=== PATIENT | male | born 1965 | race Caucasian/White ===

== ENCOUNTER → 2017-11-14 09:10 | Outpatient (CLI) | payer OTHER, SELFPAY ==
--- NOTE | 2017-11-14 | ASPOS_PTH ---
PATIENT: KELSEY RAMIRES LOC: [facility] U#:[id number] AGE/SX: 59/M ROOM: RE11/14/[address]: Dr. Nayan Andrews MD : 1965 BED: DIS: SPEC #: [id number] RECD: 11/14/17 13:16 STATUS: DANIEL RICHARD #: [id number] YVONNE: 11/14/17 00:[address]: Nayan Andrews DEPT: CYTOLOGY RECD BY: Juan M Bunn ENTERED: 11/14/17 13:17 SP TYPE: ASP HERE OTHR DR: No Primary Care Phys Tissues: Face, NOS Parotid gland, NOS Procedures: Pap Stain (control) Special Stain Group II Surgery Specimen Level IV Diff Quik Stain (control) Cell Block Cytology Other Fine Needle Asp on Site HEADER OPERATION: FNA right parotid mass PRE-OP DIAGNOSIS: Right parotid mass TISSUE SUBMITTED: Right parotid mass DIAGNOSIS CYTOLOGY Right carotid mass, FNA (smears and cell block): Consistent with pleomorphic adenoma. :rg 11/15/17 COMMENT The specimen is evaluated at the time of FNA by Dr. James. Immediate Evaluation = Pleomorphic adenoma. CYTOLOGY STUDY Slides are reviewed. CYTOLOGY GROSS Received is 0.2 ml of reddish-lee fluid labeled with the patient's name, and designated right parotid mass. Three imprints and two paps are made from the submitted fluid and the rest is added to CytoLyt for cell block preparation. Submitted for cytology study. / AM:anna 11/14/17 TC:1 CPT: 34278, 93383, 53433, 66663
== END ==
PROVIDERS: Visit Provider Otolaryngology
DX: R22.0 Localized swelling, mass and lump, head (principal)
CPT/HCPCS: 10021; 88161; 88305; 88313

== ENCOUNTER 2018-01-03 06:15 | Day surgery (SDC) | payer SELFPAY ==
--- NOTE | 2017-12-28 15:59 | EKG12_ITS ---
Test Reason : PREOP Blood Pressure : / mmHG Vent. Rate : 038 BPM Atrial Rate : 038 BPM P-R Int : 190 ms QRS Dur : 092 ms QT Int : 442 ms P-R-T Axes : 019 009 035 degrees QTc Int : 351 ms Marked sinus bradycardia Abnormal ECG Confirmed by ZEESHAN MERIDA, JONES ([id number]), editor index SCHUYLER GERARDO ([id number]) on 12/31/2017 2:04:50 PM Referred By: Kulwant Andrews Confirmed By:JONES BYERS MD
[2017-12-28 16:13] LABS: Hematocrit 43.2 % (40-54); Hemoglobin 15.3 g/dl (13.0-16.5); Mean Corp Hgb Conc 35.4 g/gl (32-36); Mean Corpuscular Hgb 32.1 pg (27.0-32.0); Mean Corpuscular Volume 90.6 fL (80-94); Mean Platelet Vol. 10.3 fl (6.2-12.0); Platelet Count 179 K/mm3 (150-450); RBC Distribution Width CV 12.2 % (11.6-14.6); Red Blood Count 4.77 M/mm3 (4.6-6.2); White Blood Count 4.6 K/mm3 (4.4-11.0)
[2017-12-28 16:25] LABS: Scan Indicated on CBC? Y/N NO
[2017-12-28 17:10] LABS: Anion Gap 6 (5-15); BUN 14 mg/dL (7-18); BUN/Creat Ratio 12.7 RATIO (10-20); Calcium,Total 8.8 mg/dL (8.5-10.1); Chloride 105 mmol/L (98-107); EST Glomerular Filtration Rate 74 mL/min (>60); Est Glom Filt Rate - Afr Amer 90 mL/min (>60); Glucose 91 mg/dL (74-106); Potassium 4.3 mmol/L (3.5-5.1); Sodium Level 140 mmol/L (136-145)
[2018-01-03] VITALS (9 sets, daily range): BP systolic 107–143; BP diastolic 69–88; PULSE 51–86; RESP 16–18; TEMP 36.3–36.5; O2SAT 96–100; BMI 32.1
--- NOTE | 2018-01-03 | PAR_PTH ---
PATIENT: KELSEY RAMIRES [place] [facility] [place][id number] AGE/SX: 52/M ROOM: RE01/03/[address]: Dr. Nayan Andrews MD : 1965 BED: DIS: 01/03/2018 SPEC #: [id number] RECD: 01/04/18 14:28 STATUS: DUTCHWisam RAMOS #: [id number] YVONNE: 01/03/18 00:[address]: Nayan Andrews DEPT: SURGICAL PATHOLOGY RECD BY: Angelito Ortega ENTERED: 01/04/18 14:29 SP TYPE: PAROTID OTHR DR: No Primary Care Phys Tissues: Parotid gland, NOS Procedures: Surgery Specimen Level V HEADER OPERATION: Right parotidectomy with preservation of facial nerve PRE-OP DIAGNOSIS: Benign neoplasm of parotid mass TISSUE SUBMITTED: Right parotid mass MICROSCOPIC DIAGNOSIS Right parotid mass, parotidectomy: Pleomorphic adenoma (5.5 cm in greatest dimension). A periparotid lymph node with reactive changes. See comment. TORO:anna 01/07/18 COMMENT Salivary gland tissue adjacent to the tumor is unremarkable. Please make reference to previous specimen ([id number]) right parotid mass, FNA with diagnosis of consistent with pleomorphic adenoma. MICROSCOPIC DESCRIPTION Slides are reviewed. GROSS DESCRIPTION Received in fixative is one container labeled with the patient's name and designated right parotid mass. The specimen consists of an irregular piece of glandular tissue weighing 28 gm and measuring 6 x 4 x 2.5 cm. The external surface is inked. Serial sections reveal a lee-white, solid mass measuring 5.5 x 3.5 x 2.5 cm. The mass occupies about 90% of the submitted specimen. The mass appears to be close to the resection margin of the specimen. Visitor Services Representative sections are submitted in ten cassettes from one end to another end. / TORO:anna 01/04/18 TC:1 CPT: 18530
--- NOTE | 2018-01-03 07:43 | PCM.DC ---
You will use the following diet at home:: No restrictions Discharge Activity: Return to Normal Activity Call your doctor if your incision/area has: Increased Pain/ Swelling Additional Dressing/Incision Instructions:: you may shower and wash incisions with soap/water beginning sunday morning. place ointment on incisions twice daily. keep abdominal binder on at all times. record NITIN output. Allergies/Adverse Reactions: Allergies No Known Allergies Allergy (Verified 12/27/17 14:49) Medications to take at Discharge Multivitamins,Therapeutic [Multivitamin] 1 tablet PO DAILY 12/27/17 Amoxicillin/Potassium Clav [Augmentin 875-125 Tablet] 1 ea PO BID #14 tab 01/03/18 Hydrocodone/Acetaminophen [[place]orest 5-325 Tablet] 1 ea PO Q6H 5 Days #15 tab 01/03/18 The following prescriptions were given: Amoxicillin/Potassium Clav [Augmentin 875-125 Tablet] 1 ea PO BID #14 tab Hydrocodone/Acetaminophen [Demorest 5-325 Tablet] 1 ea PO Q6H 5 Days #15 tab Primary Care Physician: Care Physician,No Primary [Primary Care Provider] - Test Results: Test results from this visit will be discussed in further detail at your follow-up appointment, if applicable. Please Follow Up With: Jordan Andrews MD When: tomorrow
--- NOTE | 2018-01-03 07:47 | DCINST_ITS ---
You will use the following diet at home:: No restrictions Discharge Activity: Return to Normal Activity Call your doctor if your incision/area has: Increased Pain/ Swelling Additional Dressing/Incision Instructions:: you may shower and wash incisions with soap/water beginning sunday morning. place ointment on incisions twice daily. keep abdominal binder on at all times. record NITIN output. Allergies/Adverse Reactions: Allergies No Known Allergies Allergy (Verified 12/27/17 14:49) Medications to take at Discharge Multivitamins,Therapeutic [Multivitamin] 1 tablet PO DAILY 12/27/17 Amoxicillin/Potassium Clav [Augmentin 875-125 Tablet] 1 ea PO BID #14 tab Hydrocodone/Acetaminophen [[place] 5-325 Tablet] 1 ea PO Q6H 5 Days #15 tab The following prescriptions were given: Amoxicillin/Potassium Clav [Augmentin 875-125 Tablet] 1 ea PO BID #14 tab Hydrocodone/Acetaminophen [[place] 5-325 Tablet] 1 ea PO Q6H 5 Days #15 tab Primary Care Physician: Care Physician,No Primary [Primary Care Provider] - Test Results: Test results from this visit will be discussed in further detail at your follow- up appointment, if applicable. Please Follow Up With: Jordan Andrews MD When: tomorrow
--- NOTE | 2018-01-03 07:47 | PCM.OPRPT ---
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 right superficial parotidectomy. 2. superficial musculoaponeurotic system flap. 3. abdominal fat graft Type of Anesthesia:: General Specimen's removed: right parotid gland Drains: right facial NITIN Estimated Blood Loss (mL): 5cc Description of Procedure: on the day of the procedure, after appropriate informed consent was obtained, the patient was brought to the operating room and placed in supine position on the operating table. he was placed under general endotracheal anesthesia by the anesthesiologist. the endotracheal tube was secured, the eyes were taped. right facial nerve monitoring electrodes were placed. the table was rotated 90 degrees toward the surgeon. the face and abdomen were prepped and draped in sterile fashion. the right preauricular area was injected with lidocaine/epinephrine. a modified irene incision was made with a #15 blade. the temporal-parietal fascia was located in the preauricular area. the superficial musculoaponeurotic system was isolated with metzenbaum scissors, traversing into the platysma. the tragal pointer was dissected in the supraperichondrial plane. the parotid tail was dissected off of the sternocleidomastoid fascia. 1cm inferior and deep to the tragal pointer, the main trunk of the facial nerve was exposed. this was stimulated for confirmation. beginning inferiorly, the branches of the facial nerve were individually dissected and the superficial lobe of the parotid was removed. the area was irrigated with saline. the lower left quadrant was injected with lidocaine/epinephrine. a 4cm incision was made with a #15 blade and the abdominal fat was revealed. a 4x4 cm fat graft was harvested with metzenbaum scissors. this was brought to the superior table and rinsed in saline. a melvi was placed in the abdominal defect after hemostasis was achieved. this was closed with 3-0 vicryl and 4-0 monocryl. the facial nerve main trunk was stimulated again and the superior and inferior divisions were intact. the fat graft was placed appropriately into the facial defect. this was sutured into place and the SMAS flap was closed with 4-0 vicryl. a 15 danish NITIN drain was placed and sutured into place. the irene incision was closed with 4-0 vicryl and 5-0 nylon. the patient was awoken from anesthesia and transferred to the PACU in stable condition. Grafts/Implants Used: abdominal fat graft
--- NOTE | 2018-01-03 08:13 | OP.PCM_ITS ---
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 right superficial parotidectomy. 2. superficial musculoaponeurotic system flap. 3. abdominal fat graft Type of Anesthesia:: General Specimen's removed: right parotid gland Drains: right facial NITIN Estimated Blood Loss (mL): 5cc Description of Procedure: on the day of the procedure, after appropriate informed consent was obtained, the patient was brought to the operating room and placed in supine position on the operating table. he was placed under general endotracheal anesthesia by the anesthesiologist. the endotracheal tube was secured, the eyes were taped. right facial nerve monitoring electrodes were placed. the table was rotated 90 degrees toward the surgeon. the face and abdomen were prepped and draped in sterile fashion. the right preauricular area was injected with lidocaine/ epinephrine. a modified irene incision was made with a #15 blade. the temporal- parietal fascia was located in the preauricular area. the superficial musculoaponeurotic system was isolated with metzenbaum scissors, traversing into the platysma. the tragal pointer was dissected in the supraperichondrial plane. the parotid tail was dissected off of the sternocleidomastoid fascia. 1cm inferior and deep to the tragal pointer, the main trunk of the facial nerve was exposed. this was stimulated for confirmation. beginning inferiorly, the branches of the facial nerve were individually dissected and the superficial lobe of the parotid was removed. the area was irrigated with saline. the lower left quadrant was injected with lidocaine/epinephrine. a 4cm incision was made with a #15 blade and the abdominal fat was revealed. a 4x4 cm fat graft was harvested with metzenbaum scissors. this was brought to the superior table and rinsed in saline. a melvi was placed in the abdominal defect after hemostasis was achieved. this was closed with 3-0 vicryl and 4-0 monocryl. the facial nerve main trunk was stimulated again and the superior and inferior divisions were intact. the fat graft was placed appropriately into the facial defect. this was sutured into place and the SMAS flap was closed with 4-0 vicryl. a 15 thai NITIN drain was placed and sutured into place. the irene incision was closed with 4-0 vicryl and 5-0 nylon. the patient was awoken from anesthesia and transferred to the PACU in stable condition. Grafts/Implants Used: abdominal fat graft
[2018-01-03] MEDS: Mupirocin Ointment 22gm Tube 1 APPLIC (13:46)
[2018-01-03] MEDS: HYDROcodone Bitartrate/Apap 5/325 Tablet PO (15:53)
== END 2018-01-03 18:19 | disposition home or self-care (01) ==
LOC: SDC 06:18 → AC 06:19
PROVIDERS: Visit Provider Otolaryngology
PROC: (CPT 15730; principal; 2018-01-03 07:35)
DX: D11.0 Benign neoplasm of parotid gland (principal)
CPT/HCPCS: 00100; 15730; 20920; 42415; 36415; 80048; 85027; 88305; 88307; 93005; J7120; J2405

== ENCOUNTER 2018-01-10 15:19 | Emergency (ER) | payer OTHER, SELFPAY ==
[2018-01-10 15:20] VITALS: BP 112/77; PULSE 65; PULSE 67; RESP 17; RESP 18; TEMP 37; O2SAT 98; BMI 31.9
--- NOTE | 2018-01-10 15:24 | RAD_ITS ---
STUDY: X-RAY CHEST REASON FOR EXAM: Male, 52 years old. Chest pain and dizziness. TECHNIQUE: Single AP portable view of the chest. 4:19 PM. COMPARISON: Chest CTA of January 10, 2018 at 4:10 PM. FINDINGS: The lungs are clear and expanded. There is no demonstrated pleural abnormality. Normal size heart. Normal mediastinum and [place]. Normal visualized pulmonary arteries. There is atherosclerotic tortuosity of the aortic arch and descending thoracic aorta. There are diffuse degenerative changes of the visualized thoracic spine. Normal visualized ribs, clavicles, and shoulders. There is no demonstrated abnormality of the visualized soft tissue structures of the upper abdomen. RAD/Chest 1 View (Portable) IMPRESSION: No acute cardiopulmonary findings. Negative for major consolidation, pleural effusion, cardiomegaly. Electronically Signed: Stephanie Flynn MD at 16:39 EDT , Service support ,
--- NOTE | 2018-01-10 15:24 | EKG12_ITS ---
Test Reason : DYSRHYTHMIA Blood Pressure : / mmHG Vent. Rate : 064 BPM Atrial Rate : 064 BPM P-R Int : 186 ms QRS Dur : 086 ms QT Int : 410 ms P-R-T Axes : 020 -03 -01 degrees QTc Int : 422 ms Normal sinus rhythm Possible Inferior infarct , age undetermined Abnormal ECG Confirmed by DESIRAE MERIDA, JIM ([id number]), photographic editor SCHUYLER GERARDO ([id number]) on 01/15/2018 2:46:44 PM Referred By: ARIES Confirmed By:JIM MERRILL MD
--- NOTE | 2018-01-10 15:34 | ED.RN ---
THIS RN ATTEMPTED TO START IV AND DRAW LABS. PT JUMPED AND JERKED ARM AWAY. IV SITE BLOWN. DR IN ROOM. PT AGREEABLE TO IV
--- NOTE | 2018-01-10 15:35 | ED.VISSUMM ---
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 He does report that despite all that he is able to bike almost 100 yards to his mailbox, he went to his mother's house and was walking up and down stairs, his symptoms persisted today he became very weak and tired per medics were called he was brought in for valuation, on arrival his vital signs are normal he is resting comfortably in the bed he has no complaints other than generalized weakness and fatigue, he described as shortness of breath is transitory he has no history of SC PE or DVT or leg edema Physical Examination: [] Vital signs are within normal ranges pulse ox is 98% speaking in full sentences his nose and throat are unremarkable his neck is supple his lungs are clear the heart tones are normal the abdomen soft nontender upper lower extremities unremarkable his right upper face incision over the ear region is intact there is no drainage warmth is mild tenderness is no signs of infection, his oral cavity is unremarkable, the abdominal region there is a linear incision related to the fat harvest site that is soft and nontender with no signs of infection he is moving all 4 extremities there is no cyanosis clubbing or edema or signs of DVT neurologic is moving all 4 pulses are symmetric and is awake and alert Test Results: [] Emergency Department Course and Treatment: [] Differential is rather extensive would certainly include dehydration and electrode modality cardiac pulmonary PE etc. the patient initially declined IV explained the potential would certainly include life-threatening conditions as above he then relented and agreed to have the IV started Treatment Plan: [] His labs CT EKG CTA are all unremarkable, he is walking around return to the bathroom no distress discussed inpatient versus outpatient management he wants to go home of explained to his test results are unremarkable there is no signs anything acute or life-threatening he does follow with his primary care physicians he understands and agrees this plan and agrees outpatient management will return for change in symptoms Disposition: [] Home stable Impression: [] Generalized weakness resolved, status post resection of right salivary tumor This note was generated with [employer] dictation software. It may contain incorrect words, spelling, and punctuation that were not noted in review of the chart prior to signing ED Disposition - Plan for ED Patient: Chief Complaint: Dizziness Referrals: Care Physician,No Primary [Primary Care Provider] -
--- NOTE | 2018-01-10 15:38 | CT_ITS ---
STUDY: CTA CHEST REASON FOR EXAM: Male, 52 years old. Dizziness and leg weakness after recent surgery. RADIATION DOSAGE (If Supplied By Facility): CTDIvol = ( 18.35 ) mGy, DLP = ( 663.09 ) mGycm TECHNIQUE: The examination was performed with the intravenous administration of 100 ml of Isovue 370 contrast material. Post-processing of the angiographic images was performed, with multiplanar reformation and 3D reconstruction. Individualized dose optimization techniques were used for this CT. COMPARISON: Portable chest radiograph January 10, 2018 FINDINGS: Normal enhancement of the main pulmonary artery and right and left pulmonary arteries. Normal enhancement of the bilateral peripheral pulmonary arteries. There is no demonstrated pulmonary embolism. Minimal plaque and moderate elongation of the thoracic aorta without aneurysm. There is no demonstrated aortic dissection. Normal heart and pericardium. Normal mediastinum. Normal hilar regions. Normal visualized trachea and bronchi. The lungs are well expanded. Normal pulmonary parenchyma. Normal pleura. Normal chest wall structures. There are degenerative changes of thoracic spine. Calcified granuloma of the liver. CT/CTA Chest W/WO Contrast IMPRESSION: Negative for pulmonary embolus. Mild plaque and moderate tortuosity of the thoracic aorta without aneurysm or dissection. Negative for coronary calcification. No acute pulmonary findings. Negative for pleural effusion. Electronically Signed: Stephanie Flynn MD at 16:29 EDT , Service support ,
[2018-01-10 16:07] LABS: Absolute Lymphocyte Count 0.87 X10^3/ul (0.83-4.51); Absolute Neutrophil Count 6.4 X10^3/uL (2.0-7.7); Basophil# 0.02 X10^3/uL; Basophil% 0.2 % (0-1); Eosinophil# 0.04 X10^3/uL; Eosinophils% 0.5 % (0-5); Hematocrit 45.7 % (40-54); Hemoglobin 16.4 g/dl (13.0-16.5); Lymphocyte # 0.87 X10^3/ul (4.0); Lymphocyte % 10.7 % (19-41); Mean Corp Hgb Conc 35.9 g/gl (32-36); Mean Corpuscular Hgb 32.2 pg (27.0-32.0); Mean Corpuscular Volume 89.8 fL (80-94); Mean Platelet Vol. 10.2 fl (6.2-12.0); Monocyte# 0.82 X10^3/uL; Monocyte% 10.1 % (0-10); Neutrophil # 6.38 X10^3/uL (2.7-7.7); Neutrophil % 78.3 % (47-70); Platelet Count 173 K/mm3 (150-450); RBC Distribution Width CV 12.3 % (11.6-14.6); RBC Distribution Width SD 40.1 fl (35.1-43.9); Red Blood Count 5.09 M/mm3 (4.6-6.2); White Blood Count 8.2 K/mm3 (4.4-11.0)
[2018-01-10 16:09] LABS: POSITIVE COUNT NO; POSITIVE DIFFERENTIAL NO; POSITIVE MORPHOLOGY NO
[2018-01-10 16:25] LABS: Anion Gap 8 (5-15); BUN 18 mg/dL (7-18); BUN/Creat Ratio 16.4 RATIO (10-20); Calcium,Total 8.9 mg/dL (8.5-10.1); Chloride 106 mmol/L (98-107); EST Glomerular Filtration Rate 74 mL/min (>60); Est Glom Filt Rate - Afr Amer 90 mL/min (>60); Estimated Creatinine Clearance 71.78 ml/min; Glucose 121 mg/dL (74-106); Potassium 3.6 mmol/L (3.5-5.1); Sodium Level 138 mmol/L (136-145)
[2018-01-10 16:42] VITALS: PULSE 66; RESP 12; O2SAT 98
--- NOTE | 2018-01-10 17:07 | ED.DEP ---
ED Disposition - Plan for ED Patient: Chief Complaint: Dizziness Instructions: ED Near Syncope Unkn, ED Dehydration Referrals: Care Physician,No Primary [Primary Care Provider] -
--- NOTE | 2018-01-10 17:10 | ED.DEP ---
ED Disposition - Plan for ED Patient: Chief Complaint: Dizziness Instructions: ED Dehydration, ED Near Syncope Unkn Referrals: Care Physician,No Primary [Primary Care Provider] -
[2018-01-10 18:05] VITALS: BP 117/67; PULSE 61; O2SAT 98
== END 2018-01-10 18:08 | disposition home or self-care (01) ==
PROVIDERS: Emergency Provider Emergency Medicine
DX: R53.1 Weakness (principal); Z98.890 Other specified postprocedural states
CPT/HCPCS: 71045; 71275; 80048; 84484; 85025; 93005; 96360; 99285; J7030; J7040; Q9967; A4216

== ENCOUNTER 2018-01-11 18:20 | Emergency (ER) | payer OTHER, SELFPAY ==
[2018-01-11 18:20] VITALS: BP 131/85; PULSE 60; RESP 16; TEMP 36.6; O2SAT 98; BMI 31.8
[2018-01-11 18:35] VITALS: BP 125/80; PULSE 62; RESP 14; O2SAT 99
--- NOTE | 2018-01-11 18:48 | EKG12_ITS ---
Test Reason : WEAKNESS Blood Pressure : / mmHG Vent. Rate : 053 BPM Atrial Rate : 053 BPM P-R Int : 186 ms QRS Dur : 088 ms QT Int : 426 ms P-R-T Axes : 008 -15 -08 degrees QTc Int : 399 ms Sinus bradycardia Inferior infarct , age undetermined , cannot be excluded Abnormal ECG Confirmed by DESIRAE MERIDA, JIM ([id number]), web content editor SCHUYLER GERARDO ([id number]) on 01/15/2018 2:34:26 PM Referred By: RONEN Confirmed By:JIM MERRILL MD
--- NOTE | 2018-01-11 18:54 | ED.DCSUM_ITS ---
- ER Visit Summary Date of Service: 01/11/18 Chief Complaint: Dehydrated History of Present Illness: The patient is a 52 M who was seen yesterday for shortness of breath and weakness that washed over his body. EKG, labs, CT of the chest were negative. Patient reports feeling well this morning but had a sensation of weakness wash over his body again. He does describe urinary frequency. He describes feeling of numbness and tingling in both feet and both hands earlier today that are now completely resolved. He had parotid surgery on January 03. Physical Examination: Vital signs unremarkable. Patient sitting upright in bed no acute distress. He is alert and talkative. Head neck examination reveals the parotid surgical site to be clean. Heart is regular rate and rhythm. On lung sounds are clear. Abdomen is soft nontender. Neuro exam shows no focal deficits. He has strong pulses throughout. Test Results: EKG is sinus bradycardia at 53 bpm with no sign of acute ischemia. CBC and chemistry studies unremarkable. Urinalysis normal. Emergency Department Course and Treatment: Patient was given IV fluids. On repeat evaluation patient states he did feel somewhat better. He walks down the enam[place] to the bathroom rather briskly and then felt wiped out when he returned. His got him a [employer] sandwich and he states shortly after eating that he felt wiped out. I discussed discharge with him he stated he was not quite ready to leave yet wanted more fluids. Patient was observed for a couple more hours with an additional 1 L of IV fluid given. At this time patient now tells me that Dr. Ramey advised him he may need a Holter monitor for possible runs of A. fib causing his symptoms. I discussed this with Dr. Cat and patient be placed in a 24-hour Holter monitor. Patient will also be referred to local PCP to establish primary care. Treatment Plan: [] Disposition: Discharge Impression: Episodic weakness This note was generated with [employer] dictation software. It may contain incorrect words, spelling, and punctuation that were not noted in review of the chart prior to signing ED Disposition - Plan for ED Patient: Chief Complaint: Weakness Referrals: Care Physician,No Primary [Primary Care Provider] -
[2018-01-11] MEDS: 0.9% Normal Saline 1,000 ML 1000 ML IV (19:08)
[2018-01-11 19:17] LABS: Bacteria 0 SEEN /hpf (None Seen); Mucous, Urine 0 SEEN /hpf (<or=2+); Red Blood Cells-Urine 0 SEEN /hpf (0-5); White Blood Cells 0 SEEN /hpf (0-5)
[2018-01-11 19:32] LABS: Absolute Lymphocyte Count 1.47 X10^3/ul (0.83-4.51); Absolute Neutrophil Count 4.1 X10^3/uL (2.0-7.7); Basophil# 0.02 X10^3/uL; Basophil% 0.3 % (0-1); Eosinophil# 0.05 X10^3/uL; Eosinophils% 0.8 % (0-5); Hematocrit 42.1 % (40-54); Hemoglobin 14.4 g/dl (13.0-16.5); Lymphocyte # 1.47 X10^3/ul (4.0); Lymphocyte % 23.4 % (19-41); Mean Corp Hgb Conc 34.2 g/gl (32-36); Mean Corpuscular Hgb 31.6 pg (27.0-32.0); Mean Corpuscular Volume 92.5 fL (80-94); Mean Platelet Vol. 10.4 fl (6.2-12.0); Monocyte# 0.63 X10^3/uL; Neutrophil # 4.09 X10^3/uL (2.7-7.7); Neutrophil % 65.3 % (47-70); Platelet Count 183 K/mm3 (150-450); RBC Distribution Width CV 12.8 % (11.6-14.6); RBC Distribution Width SD 42.8 fl (35.1-43.9); Red Blood Count 4.55 M/mm3 (4.6-6.2); White Blood Count 6.3 K/mm3 (4.4-11.0)
[2018-01-11 19:33] LABS: POSITIVE COUNT NO; POSITIVE DIFFERENTIAL NO; POSITIVE MORPHOLOGY NO
[2018-01-11 19:40] LABS: Color, Urine Straw (Yellow); Glucose, Dipstick Normal (Normal); Ketone-Dipstick Negative (Negative); Leukocyte Esterase-Dipstick Negative /ul (Negative); Nitrite-Dipstick Negative (Negative); Occult Blood-Urine Negative /ul (Negative); Protein-Dipstick Negative (Negative); Urine Bilirubin Dipstick Negative (Negative); Urine Clarity Clear (Clear); Urine Urobilinogen Normal (Normal)
[2018-01-11 19:41] LABS: Anion Gap 5 (5-15); BUN 9 mg/dL (7-18); BUN/Creat Ratio 8.8 RATIO (10-20); Calcium,Total 8.6 mg/dL (8.5-10.1); Chloride 110 mmol/L (98-107); Creatinine, Serum 1.02 mg/dL (0.70-1.30); EST Glomerular Filtration Rate 81 mL/min (>60); Est Glom Filt Rate - Afr Amer 98 mL/min (>60); Glucose 102 mg/dL (74-106); Potassium 4.2 mmol/L (3.5-5.1); Sodium Level 142 mmol/L (136-145)
[2018-01-11 20:04] LABS: Squamous Epithelial Cells - UA 0-5 SEEN /hpf (0-5)
[2018-01-11] MEDS: 0.9% Normal Saline 1,000 ML 150 ML IV (20:11)
[2018-01-11 20:30] VITALS: BP 123/70; PULSE 60; RESP 14; O2SAT 98
[2018-01-11 22:45] VITALS: BP 115/78; PULSE 58; RESP 14; O2SAT 95
[2018-01-12 00:02] VITALS: BP 124/75; PULSE 58; RESP 14; O2SAT 95
--- NOTE | 2018-01-12 00:34 | ED.DEP ---
ED Disposition - Plan for ED Patient: Disposition: Home or Assisted Living Chief Complaint: Weakness Instructions: ED Weakness [facility] Referrals: Karma Tang MD [STAFF PHYSICIAN] - As soon as possible
[2018-01-12 00:42] VITALS: BP 102/74; PULSE 47; RESP 18; O2SAT 96
--- NOTE | 2018-01-12 00:48 | NURSING ---
pt getting set up with a 24 holter monitor. pt will keep a diary of his palpitations. will follow up with dr. nazario
== END 2018-01-12 01:25 | disposition home or self-care (01) ==
PROVIDERS: Emergency Provider Emergency Medicine
DX: R53.1 Weakness (principal)
CPT/HCPCS: 80048; 81001; 85025; 93005; 96360; 96361; 99284; J7030; A4216

== ENCOUNTER → 2018-01-12 00:26 | Outpatient (CLI) | payer OTHER, SELFPAY | PROVIDERS: Visit Provider Internal Medicine Cardiovascular Disease | DX: R00.2 Palpitations (principal) | CPT/HCPCS: 93225; 93226 ==

== ENCOUNTER → 2018-03-19 12:00 | Outpatient (CLI) | payer OTHER, SELFPAY ==
[2018-03-19 13:16] LABS: Erythrocyte Sedimentation Rate 3 mm/hr (0-20)
[2018-03-19 13:18] LABS: Absolute Lymphocyte Count 1.55 X10^3/ul (0.83-4.51); Absolute Neutrophil Count 3.7 X10^3/uL (2.0-7.7); Basophil# 0.02 X10^3/uL; Basophil% 0.3 % (0-1); Eosinophil# 0.13 X10^3/uL; Eosinophils% 2.2 % (0-5); Hematocrit 45.6 % (40-54); Hemoglobin 15.7 g/dl (13.0-16.5); Lymphocyte # 1.55 X10^3/ul (4.0); Lymphocyte % 25.7 % (19-41); Mean Corp Hgb Conc 34.4 g/gl (32-36); Mean Corpuscular Hgb 31.7 pg (27.0-32.0); Mean Corpuscular Volume 92.1 fL (80-94); Monocyte# 0.66 X10^3/uL; Monocyte% 10.9 % (0-10); Neutrophil # 3.66 X10^3/uL (2.7-7.7); Neutrophil % 60.7 % (47-70); POSITIVE COUNT NO; POSITIVE DIFFERENTIAL NO; POSITIVE MORPHOLOGY NO; Platelet Count 191 K/mm3 (150-450); RBC Distribution Width CV 12.5 % (11.6-14.6); Red Blood Count 4.95 M/mm3 (4.6-6.2)
[2018-03-19 13:45] LABS: Progesterone Level 0.43 ng/mL (See Comment)
[2018-03-19 13:52] LABS: AST(SGOT) 17 U/L (15-37); Alanine Aminotransfer ALT/SGPT 29 U/L (16-61); Albumin, Serum 3.8 g/dL (3.2-5.0); Alkaline Phosphatase 58 U/L (45-117); Anion Gap 8 (5-15); BUN 21 mg/dL (7-18); CRP < 2.90 mg/L (0.0-3.0); Calcium,Total 8.6 mg/dL (8.5-10.1); Chloride 105 mmol/L (98-107); Creatinine, Serum 1.05 mg/dL (0.70-1.30); EST Glomerular Filtration Rate 78 mL/min (>60); Est Glom Filt Rate - Afr Amer 94 mL/min (>60); Free T3 2.9 pg/mL (2.18-3.98); Globulin 3.7 g/dL (2.2-4.2); Glucose 86 mg/dL (74-106); Potassium 4.1 mmol/L (3.5-5.1); Protein, Total 7.5 g/dL (6.4-8.2); Sodium Level 140 mmol/L (136-145); T4 Free Direct 1.02 ng/dL (0.76-1.46)
[2018-03-22 08:51] LABS: Estrogen, Total, Serum 59 pg/mL (40-115)
== END ==
DX: Z00.00 Encounter for general adult medical examination without abnormal findings (principal); Z12.5 Encounter for screening for malignant neoplasm of prostate
CPT/HCPCS: 36415; 80053; 82533; 82672; 84144; 84153; 84403; 84439; 84443; 84481; 85025; 85652; 86140; G0103

== ENCOUNTER → 2018-09-02 06:38 | Outpatient (CLI) | payer OTHER, SELFPAY ==
[2018-09-02 08:23] LABS: Hematocrit 52.5 % (40-54); Hemoglobin 17.9 g/dl (13.0-16.5); Mean Corp Hgb Conc 34.1 g/gl (32-36); Mean Corpuscular Volume 93.8 fL (80-94); Mean Platelet Vol. 10.7 fl (6.2-12.0); Platelet Count 180 K/mm3 (150-450); RBC Distribution Width CV 12.6 % (11.6-14.6); White Blood Count 6.3 K/mm3 (4.4-11.0)
[2018-09-02 08:28] LABS: Scan Indicated on CBC? Y/N NO
[2018-09-02 09:08] LABS: Progesterone Level 0.67 ng/mL (See Comment); Vitamin B12 501 pg/mL (211-911); Vitamin D,25 Hydroxy 64.8 ng/mL (29.95-100.01)
[2018-09-02 09:12] LABS: ALB/GLOB Ratio 0.9 RATIO (0.9-2.4); AST(SGOT) 18 U/L (15-37); Alanine Aminotransfer ALT/SGPT 23 U/L (16-61); Albumin, Serum 3.5 g/dL (3.2-5.0); Alkaline Phosphatase 50 U/L (45-117); Anion Gap 2 (5-15); BUN 16 mg/dL (7-18); BUN/Creat Ratio 15.8 RATIO (10-20); Calcium,Total 8.3 mg/dL (8.5-10.1); Chloride 107 mmol/L (98-107); Cholesterol 176 mg/dL (200); Creatinine, Serum 1.01 mg/dL (0.70-1.30); EST Glomerular Filtration Rate 82 mL/min (>60); Est Glom Filt Rate - Afr Amer 99 mL/min (>60); Estradiol 75.8 pg/mL; Globulin 3.7 g/dL (2.2-4.2); Glucose 87 mg/dL (74-106); High Density Lipoprotein 35 mg/dL; Protein, Total 7.2 g/dL (6.4-8.2); Sodium Level 137 mmol/L (136-145); Triglycerides 80 mg/dL; Very Low Density Lipoprotein 16 mg/dL (5-40)
[2018-09-05 16:08] LABS: Testosterone, % Free 3.68 % (1.50-4.20); Testosterone, Free 49.83 ng/dL (5.00-21.00)
[2018-09-05 16:20] LABS: DHEA Sulfate 205.7 ug/dL (48.9-344.2); Testosterone, Total 1354 ng/dL (264-916)
== END ==
PROVIDERS: Referring Provider Registered Nurse; Visit Provider Registered Nurse
DX: R68.82 Decreased libido (principal); E66.9 Obesity, unspecified; E29.1 Testicular hypofunction
CPT/HCPCS: 36415; 80053; 80061; 82306; 82607; 82627; 82670; 82746; 84144; 84402; 84403; 85027; 82626

== ENCOUNTER → 2018-10-28 12:37 | Outpatient (CLI) | payer OTHER, SELFPAY ==
[2018-10-23 11:27] VITALS: BMI 33.0
--- NOTE | 2018-10-28 12:43 | STEWCON_ITS ---
Reason For Study: CHEST PAIN Stress Results Protocol: Tony Protocol WITH DEFINITY Maximum Predicted HR: 165 bpm Target HR: 140 bpm % Maximum Predicted HR: 99 % DurationHeart Rate Stage (mm:ss) (bpm) BP Comment BASELINE 76 150/882CC DEFINITY STAGE 1 3:00 107 172/90 STAGE 2 3:00 116 198/98 STAGE 3 3:00 148 196/82SLIGHT SOB STAGE 4 0:31 164 / INCREASED SOB, 2CC DEFINITY RECOVERY 88 142/84 Stress Duration: 9:31 mm:ss Maximum Stress HR: 164 bpm Baseline Echocardiogram Findings Stress Echo Wall motion Data Resting WM Intermediate WM Stress WM Resting Wall Motion Wall Motion Stress No regional wall motion No regional wall motion abnormalities noted. abnormalities noted. Ejection Fraction 55 %. Ejection Fraction 65 %. Interpretation Summary Stress protocol: Resting EKG demonstrates normal sinus rhythm with a rate of 83 bpm normal intervals are noted resting blood pressure 150/88 mmHg. The patient exercised according to regular Tony protocol for total duration of 9 minutes and 31 seconds. The maximum heart rate attained was 171 bpm which was 103% of maximum predicted heart rate the maximum workload was 11.7 metabolic equivalents. The patient maintained sinus rhythm throughout the recording. At rest there were no ST or T wave changes noted to suggest ischemia peak exercise upsloping ST changes only were noted with no meet the criteria for ischemia. The resting blood pressure was 150/88 with a peak blood pressure 198/98 mmHg. No clinical angina was noted the test was terminated due to leg fatigue. Stress echocardiographic images. Stress and resting echocardiographic images were obtained. The resting ejection fraction was noted to be 55% with Definity enhancement the peak ejection fraction was noted to be 65% with Definity enhancement. No wall motion of normalities were noted there was thickening of all cordova with reduction in left ventricular cavity size. Conclusion: Normal exercise stress echo with no evidence of ischemia at a high workload. No clinical angina noted. No arrhythmias present. Ordering Physician: Sky Garcia Referring Physician: Sky Garcia Performed By: Sofy Wright, PUMA, RVT
== END ==
PROVIDERS: Referring Provider Internal Medicine Cardiovascular Disease; Visit Provider Internal Medicine Cardiovascular Disease
DX: R07.9 Chest pain, unspecified (principal)
CPT/HCPCS: 93017; 93350; Q9957; A4216; C8928